=== PATIENT | male | born 2000 | race African-American/Black ===

== ENCOUNTER 2021-05-19 00:15 | Emergency (ER) | payer OTHER ==
[~2021-05-19] VITALS: Ht 177.8 cm; Wt 72.7 kg
[2021-05-19 00:22] VITALS: TEMP 98.1
[2021-05-19 01:25] VITALS: BP 114/70; PULSE 76
== END 2021-05-19 01:25 | disposition home or self-care (01) ==
LOC: COL.ER 00:15
DX: S62.306A Unspecified fracture of fifth metacarpal bone, right hand, initial encounter for closed fracture (principal); W22.01XA Walked into wall, initial encounter